=== PATIENT | female | born 1950 | race Caucasian/White ===

== ENCOUNTER 2017-04-17 10:53 | Inpatient (IN) | payer MEDICARE, OTHER ==
[2017-04-17] MEDS ORDERED: Nitroglycerin 0.4 MG Tab.SL SL ONE (11:00)
[2017-04-17] MEDS ORDERED: Aspirin 325 MG Tab.EC PO ONE (11:00)
[2017-04-17] MEDS ORDERED: Sodium Chloride 0.9% 5 ML Syringe FLUSH PRN (11:58)
[2017-04-17] MEDS ORDERED: EPINEPHrine 1:10,000 1 MG/10 ML Syringe IVPUSH PRN (14:06)
[2017-04-17] MEDS ORDERED: Nitroglycerin 0.4 MG Tab.SL SL PRN (14:06)
[2017-04-17] MEDS ORDERED: Atropine 0.1 MG/ML 10 ML Syringe IVPUSH PRN (14:06)
[2017-04-17] MEDS ORDERED: Lidocaine 2% 100 MG/5 ML Syringe IVPUSH PRN (14:06)
[2017-04-17] MEDS ORDERED: Clopidogrel 75 MG Tab PO ONE (14:33)
[2017-04-17 14:37] VITALS: BP 153/98
[2017-04-17] MEDS ORDERED: Heparin Sodium/D5W 25,000 UNITS/250 ML BAG IV SCH (14:45)
[2017-04-17] MEDS ORDERED: Morphine 2 MG/ML Syringe IVPUSH PRN (14:47)
[2017-04-17] MEDS ORDERED: Ondansetron 4 MG/2 ML SDV IVPUSH PRN (14:48)
[2017-04-17] MEDS ORDERED: Heparin Sodium 5,000 Units/ML Vial IVPUSH ONE (15:06)
[2017-04-17] MEDS ORDERED: Omeprazole 20 MG Cap.CR PO SCH (17:00)
[2017-04-17] MEDS ORDERED: Levothyroxine 100 MCG Tab PO SCH (22:00)
--- NOTE | 2017-04-19 16:41 | PCM.DCSUM1 ---
Discharge Summary - Discharge Data Discharge Date: 04/17/17 Discharge Disposition: DC/Tfer to Acute Hospital 02 Condition: Fair - Patient Summary/Data Hospital Course: Ms. Oliveira is a 66yoF who was initially evaluated in clinic and subsequently admitted for elevated troponin in the presence of atypical chest pain. Chest pain did not respond to nitroglycerin, but did respond to morphine. Repeat troponin and other cardiac enzymes after 3 hours continued to rise and consultation was made with [facility] on-call assistant manager bilingual Dr. Silva and decision was made to transfer to [facility]. The patient was accepted for admission to the hospitalist service under the care of Dr. Arrington. Per cardiology recommendations, heparin drip was initiated and Plavix 300 mg oral was given. Her vital signs remained normal throughout her stay. Orders for transport were provided and discussed the patient with the charge nurse and EMS prior to departure. - Patient Instructions Diet: NPO - Discharge Plan Home Medications: Home Meds Amitriptyline [Elavil] 20 - 30 mg PO BEDTIME PRN 04/17/17 [History] Cholecalciferol (Vitamin D3) [Vitamin D3] 5,000 unit PO DAILY 04/17/17 [History] Eletriptan HBr [Relpax] 40 mg PO DAILY PRN 04/17/17 [History] Enalapril [Vasotec] 10 mg PO BEDTIME 04/17/17 [History] Enalapril [Vasotec] 20 mg PO DAILY 04/17/17 [History] Hydrochlorothiazide 12.5 mg PO DAILY 04/17/17 [History] Levothyroxine 112 mcg PO SUSA@219904/17/17 [History] Levothyroxine [Synthroid] 100 mcg PO MOTUWETHFR@0 04/17/17 [History] Lutein/Minerals/Vit A,C & E [Ocuvite] 1 tab PO DAILY 04/17/17 [History] Multivit-Min/FA/Lycopene/Lut [Century Adults 50+ Tablet] 1 tab PO DAILY [History] [place]-3/DHA/Epa/Fish Oil [Fish Oil 1,000 mg Softgel] 1,000 mg PO DAILY 04/17/17 [History] Omeprazole 20 mg PO BIDAC 04/17/17 [History] Potassium Chloride 10 meq PO DAILY 04/17/17 [History] - Discharge Summary/Plan Comment DC Time >30 min.: Yes - Patient Data Vitals - Most Recent: Last Vital Signs Temp 35.8 C 04/17/17 11:56 Pulse 88 04/17/17 14:39 Resp 18 04/17/17 14:39 BP 153/98 H 04/17/17 14:39 Pulse Ox 94 L 04/17/17 14:39 Weight - Most Recent: 83.869 kg Med Orders - Current: Current Medications Discontinued Medications Aspirin (Ecotrin) 325 mg PO ONETIME ONE Stop: 04/17/17 11:01 Last Admin: 04/17/17 11:26 Dose: 325 mg Atropine Sulfate (Atropine 0.1 Mg/Ml) 0 mg IVPUSH ASDIRECTED PRN PRN Reason: Heart Clopidogrel Bisulfate (Plavix) 300 mg PO ONETIME ONE Stop: 04/17/17 14:34 Last Admin: 04/17/17 14:50 Dose: 300 mg Epinephrine HCl (Epinephrine 1:10,000) 1 mg IVPUSH ASDIRECTED PRN PRN Reason: Heart Heparin Sodium (Porcine) (Heparin Sodium) 5,000 units IVPUSH ONETIME ONE Stop: 04/17/17 15:07 Last Admin: 04/17/17 15:00 Dose: 5,000 units Heparin Sodium/Dextrose () 25,000 units in 250 mls @ 10.068 mls/hr IV TITRATE DARRICK; 12 UNITS/KG/HR PRN Reason: Protocol Last Admin: 04/17/17 15:05 Dose: 12 units/kg/hr, 10.068 mls/hr Levothyroxine Sodium (Synthroid) 100 mcg PO DAILY@2200 DARRICK Lidocaine HCl (Xylocaine 2%) 0 mg IVPUSH ASDIRECTED PRN PRN Reason: Heart Morphine Sulfate (Morphine) 2 mg IVPUSH Q1H PRN PRN Reason: Chest Pain Nitroglycerin (Nitrostat) 0.4 mg SL ONETIME ONE Stop: 04/17/17 11:01 Last Admin: 04/17/17 11:26 Dose: 0.4 mg Nitroglycerin (Nitrostat) 0.4 mg SL ASDIRECTED PRN PRN Reason: Heart Last Admin: 04/17/17 14:37 Dose: 0.4 mg Omeprazole (Omeprazole) 20 mg PO BIDAC DARRICK Ondansetron HCl (Zofran) 4 mg IVPUSH Q4H PRN PRN Reason: Nausea/Vomiting Last Admin: 04/17/17 14:59 Dose: 4 mg Sodium Chloride (Syrex Flush) 5 ml FLUSH Q8HR PRN PRN Reason: Keep Vein Open *Q Meaningful Use (DIS) - VTE *Q VTE Criteria *Q: - Stroke *Q Stroke Criteria *Q: - AMI *Q AMI Criteria *Q:
== END 2017-04-17 15:10 | DRG 948 ==
LOC: KA.MS 11:00 → OBSVTOIN 11:00
PROVIDERS: ADMIT Family Medicine; ATTEND Family Medicine
DX: R77.8 Other specified abnormalities of plasma proteins (principal); R10.13 Epigastric pain; I10 Essential (primary) hypertension; E78.5 Hyperlipidemia, unspecified; E03.9 Hypothyroidism, unspecified; K21.9 Gastro-esophageal reflux disease without esophagitis; E55.9 Vitamin D deficiency, unspecified; Z79.899 Other long term (current) drug therapy
CPT/HCPCS: 36415; 71020; 82550; 82553; 84484; 93005; A9270-GY; J1644; J2405

== ENCOUNTER 2023-12-12 07:01 | Day surgery (SDC) | payer MEDICARE, OTHER ==
[~2023-12-12 07:01] MED LIST: Sodium Chloride 0.9% 10 ML Syringe FLUSH PRN
[2023-12-12] MEDS: Lactated Ringers 1,000 ML IV SCH (07:13)
[2023-12-12] MEDS ORDERED: Propofol 200 MG/20 ML SDV ONE (08:04)
[2023-12-12] MEDS ORDERED: Midazolam 1 MG/ML 2 ML SDV ONE (08:04)
[2023-12-12 11:40] VITALS: BP 164/96; PULSE 58
== END 2023-12-12 10:20 | disposition home or self-care (01) ==
LOC: KA.SDS 07:01
PROVIDERS: ATTEND Family Medicine
DX: Z12.11 Encounter for screening for malignant neoplasm of colon (principal); D12.3 Benign neoplasm of transverse colon; K57.30 Diverticulosis of large intestine without perforation or abscess without bleeding; K64.8 Other hemorrhoids; I25.10 Atherosclerotic heart disease of native coronary artery without angina pectoris; I10 Essential (primary) hypertension; E03.9 Hypothyroidism, unspecified; E66.9 Obesity, unspecified; E78.5 Hyperlipidemia, unspecified; R73.03 Prediabetes; L60.0 Ingrowing nail; R09.82 Postnasal drip; Z79.82 Long term (current) use of aspirin; Z79.899 Other long term (current) drug therapy; Z88.5 Allergy status to narcotic agent; Z88.8 Allergy status to other drugs, medicaments and biological substances; Z68.36 Body mass index [BMI] 36.0-36.9, adult; Z98.890 Other specified postprocedural states
CPT/HCPCS: 00811; 45380; 99100; J2250; J2704; J7120; J3490